=== PATIENT | male | born 1960 | race Caucasian/White ===

== ENCOUNTER 2016-10-17 14:15 | Outpatient (RCR) | payer BC ==
[~2016-10-17 14:15] MED LIST: HCTZ 25MG TAB25 MG PO; LOPRESSOR 550 MG/TAB PO; LORTAB 10/500 51 TAB PO; MSIR30 M1 PO; PRINIVIL20 MG PO; TRICOR 48MG48 MG PO; ULTRAM 50MG TAB50 MG PO
== END 2016-10-30 11:21 | disposition still patient (30) ==
LOC: WSPT 14:15
DX: Z47.1 Aftercare following joint replacement surgery (principal); Z96.652 Presence of left artificial knee joint